=== PATIENT | male | born 1955 | race Caucasian/White ===

== ENCOUNTER 2017-08-07 11:38 | Inpatient (IN) | payer SELFPAY ==
[2017-08-07] MEDS: NITROGLYCERIN 2% OINT 1 GM PACKET TOPICAL (12:03)
[2017-08-07] MEDS: NITROGLYCERIN 0.4 MG SL 25 TABS/BTL SL (12:03)
[2017-08-07 12:21] LABS: AUTOMATED NEUTROPHIL # 4.5 TH/MM3 (1.8-7.7); BASOPHIL # 0.1 TH/MM3 (0-0.2); BASOPHIL % 0.8 % (0.0-2.0); EOSINOPHIL # 0.1 TH/MM3 (0-0.4); EOSINOPHIL % 0.9 % (0.0-4.0); HEMATOCRIT 43.5 % (39.0-51.0); HEMO FLAGS DIFF FINAL; HEMOGLOBIN 14.8 GM/DL (13.0-17.0); LYMPH % 31.2 % (9.0-44.0); LYMPHOCYTE # 2.3 TH/MM3 (1.0-4.8); MEAN CELL VOLUME 87.6 FL (80.0-100.0); MEAN CORPUSCULAR HEMOGLOBIN 29.9 PG (27.0-34.0); MEAN CORPUSCULAR HGB CONC 34.1 % (32.0-36.0); MEAN PLATELET VOLUME 9.8 FL (7.0-11.0); MONO % 5.4 % (0.0-8.0); MONOCYTE # 0.4 TH/MM3 (0-0.9); NEUT % 61.7 % (16.0-70.0); PLATELET COUNT 182 TH/MM3 (150-450); RED BLOOD COUNT 4.97 MIL/MM3 (4.50-5.90); RED CELL DISTRIBUTION WIDTH 12.8 % (11.6-17.2); WHITE BLOOD COUNT 7.4 TH/MM3 (4.0-11.0)
[2017-08-07 12:30] LABS: CHLORIDE 107 MEQ/L (98-107); POTASSIUM 3.7 MEQ/L (3.5-5.1); SODIUM (NA) 140 MEQ/L (136-145)
[2017-08-07 12:33] LABS: CALCIUM 8.9 MG/DL (8.5-10.1)
[2017-08-07 12:34] LABS: ALBUMIN 3.8 GM/DL (3.4-5.0); ANION GAP 7 MEQ/L (5-15); BICARBONATE 25.9 MEQ/L (21.0-32.0); BLOOD UREA NITROGEN 17 MG/DL (7-18); GLUCOSE,RANDOM 127 MG/DL (74-106); MAGNESIUM 2.3 MG/DL (1.5-2.5)
[2017-08-07 12:37] LABS: ALT (GPT) 16 U/L (12-78); AST (GOT) 12 U/L (15-37); GLOMERULAR FILTRATION RATE 47 ML/MIN (>89); PROTHROMBIN TIME - PATIENT 10.5 SEC (9.8-11.6)
[2017-08-07 12:38] LABS: TOTAL BILIRUBIN ADULT 0.8 MG/DL (0.2-1.0)
[2017-08-07 12:39] LABS: TOTAL PROTEIN 7.4 GM/DL (6.4-8.2)
[2017-08-07 12:40] LABS: ALKALINE PHOSPHATASE 108 U/L (45-117)
[2017-08-07 12:42] LABS: TROPONIN I LESS THAN 0.02 NG/ML (0.02-0.05)
[2017-08-07] MEDS: LISINOPRIL 10 MG TAB PO (13:15)
[2017-08-07] MEDS: SODIUM CHLOR 0.9% 1000 ML INJ 1,000 ML IV ×2 (13:18→16:31)
[2017-08-07] MEDS: ASPIRIN 325 MG TAB PO (13:18)
[2017-08-07] MEDS: GADODIAMIDE PF 287 MG/ML 5 ML VIAL (for RAD MRI) IVCONTRAST (16:00)
[2017-08-07] MEDS ORDERED: GLUCAGON 1 MG/ML VIAL OTHER ×2 (16:45→20:30)
[2017-08-07] MEDS ORDERED: SODIUM CHLORIDE 0.9% FLUSH 10 ML FLUSH IV FLUSH ×2 (16:45→20:30)
[2017-08-07] MEDS ORDERED: DEXTROSE 50% IN WATER 50 ML VIAL(D50) IV PUSH ×2 (16:45→20:30)
[2017-08-07] MEDS ORDERED: NITROGLYCERIN 0.4 MG SL 25 TABS/BTL SL (17:00)
[2017-08-07] MEDS: INSULIN ASPART SUPPLEMENTAL SCALE SQ ×2 (17:00→20:51)
[2017-08-07 18:57] LABS: TROPONIN I 0.02 NG/ML (0.02-0.05)
[2017-08-07 19:06] LABS: WESTERGREN SEDIMENTATION RATE 4 mm/hr (0-20)
[2017-08-07 19:07] LABS: CREATINE KINASE 72 U/L (39-308)
[2017-08-07] MEDS: SODIUM CHLORIDE 0.9% FLUSH 10 ML FLUSH IV FLUSH ×2 (20:51)
[2017-08-07] MEDS: ATORVASTATIN 10 MG TAB PO (20:52)
[2017-08-07] MEDS: ENALAPRILAT 1.25 MG/ML VIAL IV PUSH (23:31)
[2017-08-08] MEDS: SODIUM CHLOR 0.9% 1000 ML INJ 1,000 ML IV ×4 (00:47→20:17)
[2017-08-08 00:57] LABS: TROPONIN I 0.02 NG/ML (0.02-0.05)
[2017-08-08] MEDS: ACETAMINOPHEN/HYDROcodone 325 MG/5 MG TAB PO (04:30)
[2017-08-08 04:55] LABS: FOLATE 13.3 NG/ML (3.1-17.5)
[2017-08-08] MEDS: INSULIN ASPART SUPPLEMENTAL SCALE SQ (08:00)
[2017-08-08] MEDS: ASPIRIN 325 MG TAB PO (08:31)
[2017-08-08] MEDS: SODIUM CHLORIDE 0.9% FLUSH 10 ML FLUSH IV FLUSH ×4 (08:31→20:16)
[2017-08-08 09:02] LABS: CREATINE KINASE 44 U/L (39-308)
[2017-08-08 10:26] LABS: CHOLESTEROL 155 MG/DL (120-200); TRIGLYCERIDES 78 MG/DL (42-150)
[2017-08-08 10:28] LABS: CHOLESTEROL/ HDL RATIO 4.42 RATIO; LDL CHOLESTEROL 104 MG/DL (0-99)
[2017-08-08 11:37] LABS: CHLORIDE 110 MEQ/L (98-107); POTASSIUM 3.8 MEQ/L (3.5-5.1); SODIUM (NA) 141 MEQ/L (136-145)
[2017-08-08 11:39] LABS: CALCIUM 8.3 MG/DL (8.5-10.1)
[2017-08-08 11:40] LABS: ANION GAP 7 MEQ/L (5-15); BICARBONATE 24.3 MEQ/L (21.0-32.0); BLOOD UREA NITROGEN 15 MG/DL (7-18); GLUCOSE,RANDOM 88 MG/DL (74-106)
[2017-08-08 11:43] LABS: GLOMERULAR FILTRATION RATE 56 ML/MIN (>89)
[2017-08-08 16:31] LABS: HEMOGLOBIN A1C 5.3 % (4.3-6.0); HEMOGLOBIN A1b 1.8 %; HEMOGLOBIN Ao 85.4 %; HEMOGLOBIN P3 3.7 %
[2017-08-08] MEDS: ATORVASTATIN 10 MG TAB PO (20:16)
[2017-08-09] MEDS: SODIUM CHLOR 0.9% 1000 ML INJ 1,000 ML IV ×3 (01:36→12:55)
[2017-08-09] MEDS: SODIUM CHLORIDE 0.9% FLUSH 10 ML FLUSH IV FLUSH ×4 (09:00→20:24)
[2017-08-09] MEDS: ASPIRIN 325 MG TAB PO (09:45)
[2017-08-09] MEDS: LISINOPRIL 10 MG TAB PO (10:33)
[2017-08-09] MEDS: METOPROLOL TARTRATE 25 MG TAB PO ×2 (10:33→20:22)
[2017-08-09] MEDS: REGADENOSON INJ 0.4 MG/5 ML SYR IV (12:00)
[2017-08-09] MEDS: ATORVASTATIN 10 MG TAB PO (20:22)
[2017-08-10] MEDS: SODIUM CHLOR 0.9% 1000 ML INJ 1,000 ML IV ×2 (00:50→01:43)
[2017-08-10] MEDS: cloNIDine HCL 0.1 MG TAB PO (05:22)
[2017-08-10] MEDS: SODIUM CHLORIDE 0.9% FLUSH 10 ML FLUSH IV FLUSH (09:00)
[2017-08-10] MEDS: LISINOPRIL 10 MG TAB PO (09:05)
[2017-08-10] MEDS: METOPROLOL TARTRATE 25 MG TAB PO (09:05)
[2017-08-10] MEDS: ASPIRIN 325 MG TAB PO (09:05)
== END 2017-08-10 13:17 | disposition home or self-care (01) | DRG 65 ==
LOC: PHED 11:38 → PHEDA 13:26 → PH3A 14:25
DX: I63.9 Cerebral infarction, unspecified (principal); I42.8 Other cardiomyopathies; I10 Essential (primary) hypertension; R07.89 Other chest pain; F17.210 Nicotine dependence, cigarettes, uncomplicated; F12.90 Cannabis use, unspecified, uncomplicated; Z82.49 Family history of ischemic heart disease and other diseases of the circulatory system
CPT/HCPCS: 70450; 70544; 70553; 71045; 78452; 80048; 80053; 80061; 82550; 82607; 82746; 82948; 83036; 83735; 84443; 84484; 85025; 85610; 85652; 85730; 92522-GN; 92526-GN; 92610-GN; 93005; 93017; 93306; 93880; 97110-GP; 97116-GP; 97162-GP; 97166-GO; 99285

== ENCOUNTER 2017-08-12 08:14 | Observation (INO) | payer SELFPAY ==
[~2017-08-12] VITALS: Ht 180.3 cm; Wt 75.0 kg
[2017-08-12] VITALS (7 sets, daily range): BP systolic 140–196; BP diastolic 86–123; PULSE 74–99; RESP 14–21; TEMP 98.3; O2SAT 96–100
[~2017-08-12 08:14] MED LIST: AMLO10 PO; ASA325 PO; LIPI10TA PO; LISI10TA3 PO; METO25TA3 PO
[2017-08-12 09:11] LABS: BILIRUBIN, URINE NEG (NEG); BLOOD, URINE NEG (NEG); GLUCOSE,URINE NEG (NEG); KETONE, URINE NEG (NEG); MUCUS URINE FEW /lpf (OCC); NITRITE,URINE NEG (NEG); URINE COLOR YELLOW (YELLW/STRAW); URINE LEUKOCYTE ESTERASE NEG (NEG)
[2017-08-12] MEDS ORDERED: SODIUM CHLORIDE 0.9% FLUSH 10 ML FLUSH IVF PRN (09:15)
--- NOTE | 2017-08-12 09:15 | RADRPT ---
EXAM DATE/TIME: 08/12/2017 08:59 [facility] COMPARISON: CHEST SINGLE AP, August 07, 2017, 12:17. INDICATIONS : Patient states shortness of breath. MEDICAL HISTORY : Hypertension. SURGICAL HISTORY : None. ENCOUNTER: Initial ACUITY: 2 days PAIN SCORE: 0/10 LOCATION: Bilateral chest FINDINGS: Stable nodular opacity measuring less than 1 cm right base. Left lung clear. The cardiomediastinal contours are unremarkable. Mild degenerative changes both shoulders. CONCLUSION: Stable chest Trino Pérez MD FACR on August 12, 2017 at 9:12 Board Certified Radiologist. This report was verified electronically.
[2017-08-12 09:25] LABS: PROTHROMBIN TIME - PATIENT 10.6 SEC (9.8-11.6)
[2017-08-12 09:27] LABS: ALBUMIN 3.3 GM/DL (3.4-5.0); AST (GOT) 15 U/L (15-37); BICARBONATE 23.9 MEQ/L (21.0-32.0); CALCIUM 8.5 MG/DL (8.5-10.1); CHLORIDE 107 MEQ/L (98-107); CREATININE 1.47 MG/DL (0.60-1.30); GLOMERULAR FILTRATION RATE 49 ML/MIN (>89); GLUCOSE,RANDOM 82 MG/DL (74-106); SODIUM (NA) 140 MEQ/L (136-145)
[2017-08-12 09:28] LABS: ALT (GPT) 17 U/L (12-78)
[2017-08-12 09:30] LABS: BLOOD UREA NITROGEN 23 MG/DL (7-18)
[2017-08-12 09:32] LABS: ALKALINE PHOSPHATASE 109 U/L (45-117); TOTAL BILIRUBIN ADULT 0.4 MG/DL (0.2-1.0); TOTAL PROTEIN 6.6 GM/DL (6.4-8.2); TROPONIN I LESS THAN 0.02 NG/ML (0.02-0.05)
--- NOTE | 2017-08-12 09:48 | RADRPT ---
EXAM DATE/TIME: 08/12/2017 09:35 [facility] COMPARISON: MRI BRAIN W & W/O CONTRAST, August 07, 2017, 15:56. CT BRAIN W/O CONTRAST, August 07, 2017, 12:35. INDICATIONS : Recent TIA's, increased loss of coordination and headache RADIATION DOSE: 32.36 CTDIvol (mGy) MEDICAL HISTORY : Hypertension. Cerebrovascular disease. SURGICAL HISTORY : None. ENCOUNTER: Initial ACUITY: 1 day PAIN SCALE: 5/10 LOCATION: cranial TECHNIQUE: Multiple contiguous axial images were obtained of the head. Using automated exposure control and adj ustment of the mA and/or kV according to patient size, radiation dose was kept as low as reasonably a chievable to obtain optimal diagnostic quality images. DICOM format image data is available electro nically for review and comparison. FINDINGS: Extensive Bascular artery calcifications are evident Ventricle size is appropriate. Moderate periventricular white matter changes are noted. Lacunar inf arcts in the nasal ganglia on the left.. There is no parenchymal hemorrhage. There no extra-axial fluid collections appreciated. CONCLUSION: No significant interval change. Significant basilar artery calcifications are eviden t. Trino Pérez MD FACR on August 12, 2017 at 9:41 Board Certified Radiologist. This report was verified electronically.
--- NOTE | 2017-08-12 09:59 | PD ---
HPI Chief Complaint: Neuro Symptoms/ Deficits Time Seen by Provider: 08:38 Travel History International Travel<30 days: No Contact w/Intl Traveler<30days: No Traveled to known affect area: No History of Present Illness HPI Patient presents to the emergency department complaining of balance coordination being off been unsteady on his feet. States that he was recently discharged from [facility] for hypertension and mini stroke but he did not get his blood pressure meds C old secondary to no money. He denies fever, chills, nausea, vomiting, back pain, hematuria, numbness or tingling, or current chest pain. Does report dyspnea with exertion, headache, bilateral blurry vision, and chest pain prior to presentation. Chest pain was described as being pressure-like, throughout his entire chest, started this morning, intermittent, approximately 45 minutes to an hour duration, no aggravating factors, but alleviated with rest. 1002: Patient states that he actually started to feel unsteady on yesterday. PFSH Past Medical History Arthritis: No Blood Disorders: No Heart Rhythm Problems: No Cancer: No Cardiovascular Problems: Yes Chest Pain: Yes (stress test in past) Congestive Heart Failure: No Cerebrovascular Accident: Yes (this admit, possible TIA) Diminished Hearing: No Endocrine: No Gastrointestinal Disorders: No GERD: No Genitourinary: No Headaches: No Hiatal Hernia: No Heparin Induced Thrombocytopen: No Hypertension: Yes Immune Disorder: No Implanted Vascular Access Dvce: No Musculoskeletal: Yes (back pain) Neurologic: Yes Psychiatric: No Reproductive: No Respiratory: No Migraines: No Seizures: No Sickle Cell Disease: No Ulcer: No ?: Not Past Surgical History Abdominal Surgery: No Cardiac Surgery: No Ear Surgery: No Endocrine Surgery: No Genitourinary Surgery: No Oral Surgery: Yes (TONSILLECTOMY) Thoracic Surgery: No Tonsillectomy: Yes Other Surgery: Yes Social History Alcohol Use: No Tobacco Use: Yes (1 pack in 3 days) Substance Use: Yes (THC daily) Allergies-Medications (Allergen,Severity, Reaction): Coded Allergies: No Known Allergies (Verified , 11/20/10) Reported Meds & Prescriptions Reported Meds & Active Scripts Active Px Aspirin (Aspirin) 325 Mg Tab 325 Mg PO DAILY 30 Days Lisinopril 10 Mg Tab 10 Mg PO DAILY 30 Days Norvasc (Amlodipine Besylate) 10 Mg Tab 10 Mg PO DAILY 30 Days Metoprolol Tartrate 25 Mg Tab 25 Mg PO Q12HR 30 Days Lipitor (Atorvastatin Calcium) 10 Mg Tab 10 Mg PO HS 30 Days Review of Systems Except as stated in HPI: all other systems reviewed are Neg Physical Exam Narrative GENERAL: No acute distress. SKIN: Focused skin assessment warm/dry. HEAD: Atraumatic. Normocephalic. EYES: Pupils equal and round. Extraocular muscles intact bilaterally. No scleral icterus. No injection or drainage. ENT: No nasal bleeding or discharge. Mucous membranes pink and moist. NECK: Trachea midline. No JVD. CARDIOVASCULAR: Regular rate and rhythm. No murmur appreciated. RESPIRATORY: No accessory muscle use. Clear to auscultation. Breath sounds equal bilaterally. GASTROINTESTINAL: Abdomen soft, non-tender, nondistended. Hepatic and splenic margins not palpable. MUSCULOSKELETAL: No obvious deformities. No clubbing. No cyanosis. No edema. NEUROLOGICAL: Awake and alert. No obvious cranial nerve deficits. Motor grossly within normal limits on left, 4 out of 5 right upper extremity and lower extremity.. Normal speech. Attempted to get patient up to check his gait but he said that he felt unsteady. PSYCHIATRIC: Appropriate mood and affect; insight and judgment normal. Data Data Last Documented VS Vital Signs Date Time Temp Pulse Resp B/P (MAP) Pulse Ox O2 Delivery O2 Flow Rate FiO2 08/12/17 10:16 99 18 190/112 (138) 99 Room Air 08/12/17 08:27 98.3 Orders Orders Prothrombin Time / Inr (Pt) (08/12/17 08:47) Act Partial Throm Time (Ptt) (08/12/17 08:47) Complete Blood Count With Diff (08/12/17 08:47) Comprehensive Metabolic Panel (08/12/17 08:47) Creatine Kinase (Cpk) (08/12/17 08:47) Drug Screen, Random Urine (08/12/17 08:47) Troponin I (08/12/17 08:47) Urinalysis - C+S If Indicated (08/12/17 08:47) Ct Brain W/O Iv Contrast(Rout) (08/12/17 08:47) Chest, Single Ap (08/12/17 08:47) Ecg Monitoring (08/12/17 08:47) Iv Access Insert/Monitor (08/12/17 08:47) Oximetry (08/12/17 08:47) Ckmb (Isoenzyme) Profile (08/12/17 08:47) Electrocardiogram (08/12/17 08:47) B-Type Natriuretic Peptide (08/12/17 08:56) Sodium Chloride 0.9% Flush (Ns Flush) (08/12/17 09:15) Hydralazine Inj (Apresoline Inj) (08/12/17 10:00) Aspirin (Aspirin) (08/12/17 10:00) Place In Observation (08/12/17 ) Code Status (08/12/17 10:20) Vital Signs (Adult) Q4H (08/12/17 10:20) Activity Oob With Assistance (08/12/17 10:20) Diet Heart Healthy (08/12/17 Lunch) Sodium Chloride 0.9% Flush (Ns Flush) (08/12/17 10:30) Sodium Chloride 0.9% Flush (Ns Flush) (08/12/17 21:00) Acetaminophen (Tylenol) (08/12/17 10:30) Metoclopramide Inj (Reglan Inj) (08/12/17 10:30) Comprehensive Metabolic Panel (08/13/17 06:00) Complete Blood Count With Diff (08/13/17 06:00) Pt Request For Service (08/12/17 10:20) Case Management Consult (08/12/17 10:20) Heparin Inj (Heparin Inj) (08/12/17 11:00) Acetaminophen (Tylenol) (08/12/17 10:30) Naloxone Inj (Narcan Inj) (08/12/17 10:30) Magnesium Hydroxide Liq (Milk Of Magnesi (08/12/17 10:30) Admit Order (Ed Use Only) (08/12/17 10:22) Labs Laboratory Tests Test 08/12/17 08:10 08/12/17 08:40 08/12/17 08:47 08/12/17 09:00 B-Type Natriuretic Peptide 52 PG/ML Prothrombin Time 10.6 SEC Prothromb Time International Ratio 1.0 RATIO Activated Partial Thromboplast Time 23.8 SEC Blood Urea Nitrogen 23 MG/DL Creatinine 1.47 MG/DL Random Glucose 82 MG/DL Total Protein 6.6 GM/DL Albumin 3.3 GM/DL Calcium Level 8.5 MG/DL Alkaline Phosphatase 109 U/L Aspartate Amino Transf (AST/SGOT) 15 U/L Alanine Aminotransferase (ALT/SGPT) 17 U/L Total Bilirubin 0.4 MG/DL Sodium Level 140 MEQ/L Potassium Level 4.5 MEQ/L Chloride Level 107 MEQ/L Carbon Dioxide Level 23.9 MEQ/L Anion Gap 9 MEQ/L Estimat Glomerular Filtration Rate 49 ML/MIN Total Creatine Kinase 65 U/L Troponin I LESS THAN 0.02 NG/ML Urine Opiates Screen NEG Urine Barbiturates Screen NEG Urine Amphetamines Screen NEG Urine Benzodiazepines Screen NEG Urine Cocaine Screen POS Urine Cannabinoids Screen POS Urine Color YELLOW Urine Turbidity CLEAR Urine pH 5.0 Urine Specific [place] 1.012 Urine Protein NEG mg/dL Urine Glucose (UA) NEG mg/dL Urine Ketones NEG mg/dL Urine Occult Blood NEG Urine Nitrite NEG Urine Bilirubin NEG Urine Urobilinogen LESS THAN 2.0 MG/DL Urine Leukocyte Esterase NEG Urine RBC LESS THAN 1 /hpf Urine WBC LESS THAN 1 /hpf Urine Mucus FEW /lpf Microscopic Urinalysis Comment CATH-CULT NOT IND MDM Medical Decision Making Medical Screen Exam Complete: Yes Emergency Medical Condition: Yes Interpretation(s) ECG: Sinus rhythm rate 75 LVH, T-wave inversion in 3 and aVF (on prior ecg) Labs: UDS positive for cocaine and cannabinoids, increased BUN and creatinine Last Impressions Head CT 08/12/17846 Signed Impressions: Service Date/Time: Saturday, August 12, 2017 09:35 - CONCLUSION: No significant interval change. Significant basilar artery calcifications are evident. Trino Pérez MD FACR Chest X-Ray 08/12/1793 Signed Impressions: Service Date/Time: Saturday, August 12, 2017 08:59 - CONCLUSION: Stable chest Trino Pérez MD FACR Differential Diagnosis CVA, TIA, intracranial hemorrhage, hypertensive emergency or urgency Narrative Course Patient presents to the emergency department reporting feeling unsteady on his feet this morning. Recently discharged from [place] for hypertension and possible TIA, patient able to get his Liza will get head CT, chest x-ray, EKG, enzymes, CBC, chemistry, UA, UDS. 0958: Blood pressure 190/112, will give 10 mg IV hydralazine, aspirin 325 mg p.o., and admit to the hospitalist. 10:25-blood pressure 162/94 after IV hydralazine. Admit DrGay at bedside. CBC still pending, lab called. 1108: CBC within normal limits. Diagnosis Primary Impression: Hypertension Qualified Codes: I10 - Essential (primary) hypertension Additional Impression: Chest pain Qualified Codes: R07.9 - Chest pain, unspecified Admitting Information Admitting Physician Requests: Admit Condition: Stable Haydee Trinidad MD August 12, 2017 09:59
[2017-08-12] MEDS ORDERED: hydrALAZINE HCL 20 MG/ML VIAL IV PUSH ONE (10:00)
[2017-08-12] MEDS ORDERED: ASPIRIN 325 MG TAB PO ONE (10:00)
[2017-08-12] MEDS ORDERED: NALOXONE HCL 0.4 MG/ML AMP IV PUSH PRN (10:30)
[2017-08-12] MEDS ORDERED: SODIUM CHLORIDE 0.9% FLUSH 10 ML FLUSH IV FLUSH PRN (10:30)
[2017-08-12] MEDS ORDERED: METOCLOPRAMIDE HCL 10 MG/2 ML VIAL IV PUSH PRN (10:30)
[2017-08-12] MEDS ORDERED: MAGNESIUM HYDROXIDE SUSP 30 ML CUP PO PRN (10:30)
[2017-08-12] MEDS ORDERED: ACETAMINOPHEN 325 MG TAB PO PRN ×2 (10:30)
--- NOTE | 2017-08-12 10:31 | HHI.HP ---
HPI Service [facility] Primary Care Physician Unknown Admission Diagnosis chest pain, hypertension, ?CVA vs TIA Diagnoses: Chief Complaint: Chest pain, uncoordinated movements Travel History International Travel<30 Days: No Contact w/Intl Traveler <30 Da: No Traveled to Known Affected Are: No History of Present Illness Written by Randi Mathews, acting as scribe for Dr. Barfield on 08/12/17 at 10: 31. Patient is a 63-year-old male with history of marijuana and cocaine use, HTN who came into the hospital for complaints of discoordinated and chest pain. Patient states that he woke up this morning with a headache, he also was not coordinated, describing that he is unable to pour coffee into the cup that it spilled. States that he is walking was off that is when he went to the hospital. Patient was seen in [place] recently 08/07/17 and was workup for CVA, his CVA workup was negative. Patient admits to using cocaine yesterday, he also admits using "weed". States weed controls his pain and he does not want to be on any narcotic medication. Patient states he is feeling better and that he is actually going to get his medication that he was discharged from from [facility]. States that he would not want to do cocaine again. Discussed extensively with patient harms of cocaine use, not limited to . Verbalized understanding. Initial BP 185/117, heart rate 75. Denies pain and discomfort. Denies SOB/ dyspnea. Denies chest pain, palpitations, headaches, dizziness. Denies fevers, chills, n/v/d. Denies dysuria. Head CT no significant interval change. Significant basilar artery calcifications are evident. Chest x-ray stable Review of Systems Except as stated in HPI: all other systems reviewed are Neg Past Family Social History Past Medical History HTN Past Surgical History Neck fusion surgery Tonsillectomy Reported Medications Reported Meds & Active Scripts Active Px Aspirin (Aspirin) 325 Mg Tab 325 Mg PO DAILY 30 Days Lisinopril 10 Mg Tab 10 Mg PO DAILY 30 Days Norvasc (Amlodipine Besylate) 10 Mg Tab 10 Mg PO DAILY 30 Days Metoprolol Tartrate 25 Mg Tab 25 Mg PO Q12HR 30 Days Lipitor (Atorvastatin Calcium) 10 Mg Tab 10 Mg PO HS 30 Days Allergies: Coded Allergies: No Known Allergies (Verified , 11/20/10) Active Ordered Medications Current Medications Medications (Trade) Dose Ordered Sig/Kaiser Route Start Time Stop Time Status Last Admin (NS Flush) 2 ml UNSCH PRN IV FLUSH 08/12/17 10:30 (NS Flush) 2 ml BID IV FLUSH 08/12/17 21:00 (Tylenol) 650 mg Q4H PRN PO 08/12/17 10:30 (Reglan Inj) 5 mg Q6H PRN IV PUSH 08/12/17 10:30 (Heparin Inj) 5,000 units Q12H SQ 08/12/17 11:00 (Tylenol) 650 mg Q6H PRN PO 08/12/17 10:30 (Narcan Inj) 0.4 mg UNSCH PRN IV PUSH 08/12/17 10:30 (Milk Of Magndaniela Liq) 30 ml Q12H PRN PO 08/12/17 10:30 Family History Father of a heart attack Mother of CHF Social History Lives alone Denies alcohol use, states he quit drinking 20 years ago Smokes a pack every 3 days Uses marijuana, recent use of cocaine Physical Exam Vital Signs Vital Signs Date Time Temp Pulse Resp B/P (MAP) Pulse Ox O2 Delivery O2 Flow Rate FiO2 08/12/17 10:16 99 18 190/112 (138) 99 Room Air 08/12/17 09:07 18 99 Room Air 08/12/17 08:31 73 18 98 08/12/17 08:27 98.3 75 18 185/117 (139) 98 Room Air 193/123 (146) Physical Exam GENERAL: This is a well-nourished, well-developed patient, in no apparent distress. SKIN: Cool and dry. HEAD: Normocephalic. No temporal or scalp tenderness. EYES: Pupils equal round and reactive. Extraocular motions intact. No scleral icterus. No injection or drainage. ENT: Nose without bleeding. Throat without erythema. Uvula midline. Airway patent. NECK: Trachea midline. No JVD. Supple. CARDIOVASCULAR: Regular rate and rhythm without murmurs, gallops, or rubs. RESPIRATORY: Clear to auscultation. Breath sounds equal bilaterally. No wheezes , rales, or rhonchi. GASTROINTESTINAL: Abdomen soft, non-tender, nondistended. Bowel sounds active 4. MUSCULOSKELETAL: Extremities without clubbing, cyanosis, or edema. NEUROLOGICAL: Awake and alert. Cranial nerves II through XII intact. Motor and sensory grossly within normal limits. Equal strength throughout. Normal speech. Laboratory Laboratory Tests Test 08/12/17 08:10 08/12/17 08:40 08/12/17 08:47 08/12/17 09:00 B-Type Natriuretic Peptide 52 Prothrombin Time 10.6 Prothromb Time International Ratio 1.0 Activated Partial Thromboplast Time 23.8 Blood Urea Nitrogen 23 Creatinine 1.47 Random Glucose 82 Total Protein 6.6 Albumin 3.3 Calcium Level 8.5 Alkaline Phosphatase 109 Aspartate Amino Transf (AST/SGOT) 15 Alanine Aminotransferase (ALT/SGPT) 17 Total Bilirubin 0.4 Sodium Level 140 Potassium Level 4.5 Chloride Level 107 Carbon Dioxide Level 23.9 Anion Gap 9 Estimat Glomerular Filtration Rate 49 Total Creatine Kinase 65 Troponin I LESS THAN 0.02 Urine Opiates Screen NEG Urine Barbiturates Screen NEG Urine Amphetamines Screen NEG Urine Benzodiazepines Screen NEG Urine Cocaine Screen POS Urine Cannabinoids Screen POS Urine Color YELLOW Urine Turbidity CLEAR Urine pH 5.0 Urine Specific [place] 1.012 Urine Protein NEG Urine Glucose (UA) NEG Urine Ketones NEG Urine Occult Blood NEG Urine Nitrite NEG Urine Bilirubin NEG Urine Urobilinogen LESS THAN 2.0 Urine Leukocyte Esterase NEG Urine RBC LESS THAN 1 Urine WBC LESS THAN 1 Urine Mucus FEW Microscopic Urinalysis Comment CATH-CULT NOT IND Result Diagram: 08/12/17 08 Imaging Last Impressions Head CT 08/12/17846 Signed Impressions: Service Date/Time: Saturday, August 12, 2017 09:35 - CONCLUSION: No significant interval change. Significant basilar artery calcifications are evident. Trino Pérez MD FACR Chest X-Ray 08/12/17846 Signed Impressions: Service Date/Time: Saturday, August 12, 2017 08:59 - CONCLUSION: Stable chest Trino Pérez MD FACR Septic Shock Reassessment Septic shock perfusion: reassessment completed Caprini VTE Risk Assessment Caprini VTE Risk Assessment: Mod/High Risk (score >= 2) Caprini Risk Assessment Model Point Value = 1 Point Value = 2 Point Value = 3 Point Value = 5 Age 41-60 Minor surgery BMI > 25 kg/m2 Swollen legs Varicose veins or History of unexplained or recurrent spontaneous Oral contraceptives or hormone replacement Sepsis (< 1 month) Serious lung disease, including pneumonia (< 1 month) Abnormal pulmonary function Acute myocardial infarction Congestive heart failure (< 1 month) History of inflammatory bowel disease Medical patient at bed rest Age 61-74 Arthroscopic surgery Major open surgery (> 45 min) Laparoscopic surgery (> 45 min) Malignancy Confined to bed (> 72 hours) Immobilizing plaster cast Central venous access Age >= 75 History of VTE Family history of VTE Factor V Leiden Prothrombin [id number] Lupus anticoagulant Anticardiolipin antibodies Elevated serum homocysteine Heparin-induced thrombocytopenia Other congenital or acquired thrombophilia Stroke (< 1 month) Elective arthroplasty Hip, pelvis, or leg fracture Acute spinal cord injury (< 1 month) Prophylaxis Regimen Total Risk Factor Score Risk Level Prophylaxis Regimen 0-1 Low Early ambulation 2 Moderate Order ONE of the following: *Sequential Compression Device (SCD) *Heparin 5000 units SQ BID 3-4 Higher Order ONE of the following medications: *Heparin 5000 units SQ TID *Enoxaparin/Lovenox 40 mg SQ daily (WT < 150 kg, CrCl > 30 mL/min) *Enoxaparin/Lovenox 30 mg SQ daily (WT < 150 kg, CrCl > 10-29 mL/min) *Enoxaparin/Lovenox 30 mg SQ BID (WT < 150 kg, CrCl > 30 mL/min) AND/OR *Sequential Compression Device (SCD) 5 or more Highest Order ONE of the following medications: *Heparin 5000 units SQ TID (Preferred with Epidurals) *Enoxaparin/Lovenox 40 mg SQ daily (WT < 150 kg, CrCl > 30 mL/min) *Enoxaparin/Lovenox 30 mg SQ daily (WT < 150 kg, CrCl > 10-29 mL/min) *Enoxaparin/Lovenox 30 mg SQ BID (WT < 150 kg, CrCl > 30 mL/min) AND *Sequential Compression Device (SCD) Assessment and Plan Problem List: (1) Cocaine abuse ICD Code: F14.10 - Cocaine abuse, uncomplicated (2) Hypertension ICD Code: I10 - Essential (primary) hypertension Status: Acute (3) Chest pain ICD Code: R07.9 - Chest pain, unspecified Status: Acute Assessment and Plan Patient is a 63-year-old male with history of marijuana and cocaine use, HTN who came into the hospital for complaints of discoordinated and chest pain. Hypertension, uncontrolled Chest pain -This is possibly related to cocaine use as patient admits to using cocaine yesterday -U tox positive for cocaine and cannabinoid -Restart home medication, lisinopril low dose, amlodipine 10 mg, atorvastatin. Will hold off beta-corinna for now secondary to cocaine use. -Keep lisinopril low dose to avoid progressive proteinuria secondary to HTN. -Recent echo, EF 40-45% Acute kidney injury on possible chronic kidney disease stage II-III -Creatinine elevated 1.47, baseline creatinine 1.2-1.3 -Avoid nephrotoxins -Encourage p.o. hydration -This could possibly be secondary to cocaine use Uncoordinated -PT to evaluate and treat Cocaine abuse Tobacco abuse Marijuana use -Extensively counseled. Discussed with patient harmful effects of drug use not limited to -Nicotine patch Noncompliant -Counseled DVT prop heparin Plan to discharge home today when BP is improved. This note was transcribed by trino Mathews. I, Dr. Scott Barfield personally performed the history, physical exam, and medical decision making; and confirmed the accuracy of the information in the transcribed note. Authenticated by Dr. Scott Barfield on 08/12/17 at 10:31. Code Status Full code Discussed Condition With Patient, nursing, ED attending Problem Qualifiers (1) Hypertension: Qualified Codes: I10 - Essential (primary) hypertension (2) Chest pain: Qualified Codes: R07.9 - Chest pain, unspecified Randi Schroeder August 12, 2017 10:31 Scott Barfield MD August 12, 2017 10:31
[2017-08-12 10:53] LABS: AUTOMATED NEUTROPHIL # 4.7 TH/MM3 (1.8-7.7); BASOPHIL # 0.1 TH/MM3 (0-0.2); BASOPHIL % 0.8 % (0.0-2.0); EOSINOPHIL # 0.1 TH/MM3 (0-0.4); EOSINOPHIL % 1.3 % (0.0-4.0); HEMATOCRIT 42.3 % (39.0-51.0); HEMOGLOBIN 14.7 GM/DL (13.0-17.0); LYMPH % 23.8 % (9.0-44.0); LYMPHOCYTE # 1.7 TH/MM3 (1.0-4.8); MEAN CELL VOLUME 88.7 FL (80.0-100.0); MEAN CORPUSCULAR HEMOGLOBIN 30.8 PG (27.0-34.0); MEAN CORPUSCULAR HGB CONC 34.7 % (32.0-36.0); MEAN PLATELET VOLUME 9.3 FL (7.0-11.0); MONO % 8.3 % (0.0-8.0); MONOCYTE # 0.6 TH/MM3 (0-0.9); NEUT % 65.8 % (16.0-70.0); PLATELET COUNT 169 TH/MM3 (150-450); RED BLOOD COUNT 4.77 MIL/MM3 (4.50-5.90); WHITE BLOOD COUNT 7.1 TH/MM3 (4.0-11.0)
[2017-08-12] MEDS ORDERED: HEPARIN SODIUM - SQ 10,000 UNITS/ML VIAL SQ SCH (11:00)
[2017-08-12] MEDS ORDERED: LISINOPRIL 10 MG TAB PO SCH (11:30)
[2017-08-12] MEDS ORDERED: NICOTINE 14 MG/24 HR PATCH T-DERMAL SCH (11:30)
[2017-08-12] MEDS ORDERED: ASPIRIN 325 MG TAB PO SCH (11:30)
[2017-08-12] MEDS ORDERED: NICO14DI23 T-DERMAL (12:46)
--- NOTE | 2017-08-12 12:47 | HHI.DCPOC ---
Discharge Care Plan Diagnosis: (1) Hypertension (2) Cocaine abuse (3) Chest pain Your Health Problems Are: Chest Pain Goals to Promote Your Health * To prevent worsening of your condition and complications * To maintain your health at the optimal level Directions to Meet Your Goals Take your medications as prescribed Follow your dietary instruction Follow activity as directed Keep your appointments as scheduled Take your immunizations and boosters as scheduled If your symptoms worsen call your PCP, if no PCP go to Urgent Care Center or Emergency Room Smoking is Dangerous to Your Health. Avoid second hand smoke Call the 24-hour hour crisis hotline for domestic abuse at Randi Schroeder August 12, 2017 12:47
--- NOTE | 2017-08-12 14:09 | HHI.PR ---
Addendum to Inpatient Note Addendum Reason: Additional Documentation Additional Information Discharge patient to home Condition on discharge: Improved Regular Diet as tolerated Ad Jeimy activity Rx written:see EMR Follow-up with primary care physician in 1 week Scott Barfield MD August 12, 2017 14:09
[2017-08-12] MEDS ORDERED: cloNIDine HCL 0.2 MG TAB PO ONE (16:30)
--- NOTE | 2017-08-12 18:44 | EKG ---
Date Performed: 08/12/2017 Time Performed: 08:22:05 PTAGE: 62 years EKG: Sinus rhythm LEFT VENTRICULAR HYPERTROPHY AND ST-T CHANGE ABNORMAL ECG INTERPRETATION BASED ON A DEFAULT AGE OF 4 0 YEARS Since the PREVIOUS TRACING , no significant change noted PREVIOUS TRACIN08/08/2017 00.18 DOCTOR: Saeed Mireles Interpretating Date/Time 08/12/2017 18:42:29
[2017-08-12] MEDS ORDERED: ATORVASTATIN 10 MG TAB PO SCH (21:00)
[2017-08-12] MEDS ORDERED: SODIUM CHLORIDE 0.9% FLUSH 10 ML FLUSH IV FLUSH SCH (21:00)
[2017-08-13] MEDS ORDERED: REMOVE OLD PATCH T-DERMAL SCH (09:00)
== END 2017-08-12 19:25 | disposition home or self-care (01) ==
LOC: NEPE 08:14 → NEDA 10:25 → UNDOADMOB 10:25 → NEDA 14:28 → N04B 14:28 → UNDODISOB 19:25
PROVIDERS: ADMIT Hospitalist; ATTEND Hospitalist
DX: R07.89 Other chest pain (principal); R26.81 Unsteadiness on feet; I11.9 Hypertensive heart disease without heart failure; F14.10 Cocaine abuse, uncomplicated; N17.9 Acute kidney failure, unspecified; R91.8 Other nonspecific abnormal finding of lung field; F12.10 Cannabis abuse, uncomplicated; Z91.19 Patient's noncompliance with other medical treatment and regimen; Z79.899 Other long term (current) drug therapy; Z79.82 Long term (current) use of aspirin; Z86.73 Personal history of transient ischemic attack (TIA), and cerebral infarction without residual deficits; Z98.1 Arthrodesis status; Z82.49 Family history of ischemic heart disease and other diseases of the circulatory system
CPT/HCPCS: 70450; 71045; 80053; 80307; 81001; 82550; 83880; 84484; 85025; 85610; 85730; 93005; 96374; 99285; G0378; J0360; J1644